=== PATIENT | female | born 1985 | race Caucasian/White ===

== ENCOUNTER 2023-02-08 16:29 | Emergency (ER) | payer OTHER ==
[2023-02-08 16:37] VITALS: BP 128/66; PULSE 81; RESP 18; TEMP 97.6; BMI 23.0
[2023-02-08 19:00] LABS: BASO % 0.8 % (0-2.0); EOS % 1.7 % (0-4.5); HEMATOCRIT 38.2 % (32.4-45.2); LYMPH % 30.9 % (8-40); MCH 30.1 pg (25.7-33.7); MCHC 34.2 g/dl (32.0-36.0); MONO % 5.5 % (3.8-10.2); NEUT % 61.1 % (42.8-82.8); PLATELET COUNT 307 10^3/uL (134-434); RBC 4.34 M/mm3 (3.60-5.2); RDW 13.3 % (11.6-15.6); WHITE BLOOD COUNT 6.1 K/mm3 (4.0-10.0)
[2023-02-08 19:13] LABS: INR 2.33 (0.83-1.09); PROTHROMBIN TIME (PATIENT) 26.8 SEC (9.7-13.0)
== END 2023-02-08 20:10 | disposition home or self-care (01) ==
LOC: JER 16:29
DX: N93.9 Abnormal uterine and vaginal bleeding, unspecified (principal)
CPT/HCPCS: 36415; 85025; 85610; 99283-25